=== PATIENT | male | born 1965 | race Two or more races ===

== ENCOUNTER 2025-10-19 22:58 | Emergency (ER) | payer OTHER ==
[~2025-10-19] VITALS: Ht 170.2 cm; Wt 73.5 kg
[2025-10-20] MEDS ORDERED: CEFTRIAXONE SODIUM 1,000 MG VIAL IM STA (01:11)
[2025-10-20] MEDS ORDERED: METHYLPREDNISOLONE SOD SUCC 125 MG VIAL IM STA (01:11)
[2025-10-20 02:56] LABS: URINE APPEARANCE Clear; URINE BACTERIA 14.8 uL (0.0-1933); URINE BILIRRUBIN Negative (NEGATIVE); URINE BLOOD Negative; URINE COLOR Yellow; URINE GLUCOSE Negative (NEGATIVE); URINE KETONE Trace (NEGATIVE); URINE LEUKOCYTE Trace; URINE NITRATE Negative; URINE PROTEIN Negative (NEGATIVE); URINE UROBILINOGEN 1.0 E.U./dl; URINE WBC 13.1 uL (0.0-23.2)
[2025-10-20 02:57] LABS: BASO % 0.2 % (0.1-1.2); EOS # 0.01 (0.04-0.54); EOS % 0.1 % (0.7-7.0); LYMPH # 1.73 (1.18-3.74); LYMPH % 14.9 % (19.3-53.1); MEAN PLATELET VOLUME 9.20 fl (9.4-12.4); MONO # 1.03 (0.24-0.82); MONO % 8.9 % (4.7-12.5); NEUT # 8.76 (1.56-6.13); NEUT % 75.4 % (34.0-71.1); RED CELL DISTRIBUTION WIDTH 12.5 % (11.6-14.4)
[2025-10-20 03:19] LABS: BUN CREA RATIO 15.0 (7.0-25.0); CREATININE SERUM 1.09 mg/dL (0.70-1.30); GFR 69.48; GLUCOSE FASTING 133.0 mg/dL (65-100); OSMOLALITY SERUM 290.0 MOSM/KG (275-295)
[2025-10-20 03:30] LABS: COVID-19 AG NEGATIVE (NEGATIVE)
[2025-10-20 03:32] LABS: URINE CAST 0.14 uL (0.0-1.40); URINE EPITHELIAL CELLS 0.9 uL (0.0-38.8); URINE RBC 1.8 uL (0.0-20.8)
== END 2025-10-20 05:09 | disposition home or self-care (01) ==
LOC: ER 22:59
PROVIDERS: General Practice
DX: H10.13 Acute atopic conjunctivitis, bilateral (principal); J98.8 Other specified respiratory disorders; J20.8 Acute bronchitis due to other specified organisms; Z20.822 Contact with and (suspected) exposure to COVID-19